=== PATIENT | male | born 1980 | race Caucasian/White ===

== ENCOUNTER 2022-02-01 20:58 | Emergency (ER) | payer SELFPAY ==
[~2022-02-01] VITALS: Ht 177.8 cm; Wt 141.0 kg
[2022-02-01] MEDS ORDERED: INSULIN REGULAR (HUMULIN R) 300UNITS/3ML VIAL SUBCUT ONE (21:15)
[2022-02-01 22:50] LABS: BASOPHILS % 0.6 % (0.0-2.0); EOSINOPHILS % 0.9 % (0.0-5.0); HEMATOCRIT. 36.4 % (42.0-52.0); LYMPHOCYTES % 20.9 % (20.0-50.0); MEAN CORPUSCULAR HEMOGLOBIN 25.8 pg (28.0-32.0); MEAN CORPUSCULAR VOLUME 78.3 fL (80.0-94.0); MEAN PLATELET VOLUME 8.5 fl (7.4-10.4); MONOCYTES % 5.7 % (2.0-8.0); NEUTROPHILS % 71.9 % (40.0-76.0); PLATELET 258 x1000/uL (130-400); RED BLOOD CELL COUNT 4.66 mill/uL (4.7-6.1); RED CELL DISTRIBUTION WIDTH 14.1 % (11.6-14.6)
[2022-02-01 22:57] LABS: CHLORIDE 104 mEq/L (98-107)
[2022-02-01 23:06] LABS: ETHANOL BLOOD < 10 mg/dL
[2022-02-02 00:02] VITALS: BP 132/74
== END 2022-02-02 00:05 | disposition home or self-care (01) ==
LOC: ER 20:58
DX: E11.65 Type 2 diabetes mellitus with hyperglycemia (principal); I10 Essential (primary) hypertension; Z79.4 Long term (current) use of insulin
CPT/HCPCS: 36415; 80053; 80320; 82962; 83880; 84484; 85025; 93005; 96372; 99284; G0480